=== PATIENT | male | born 1945 | race Caucasian/White ===

== ENCOUNTER 2022-11-26 00:17 | Observation (INO) | payer OTHER ==
--- NOTE | 2022-11-26 00:33 | ED ---
Chest Pain HPI - General Stated Complaint: Chest Pain Time Seen by Provider: 11/26/22 00:29 Source: RN notes reviewed, old records reviewed Mode of arrival: EMS Limitations: no limitations - History of Present Illness Initial Comments: This is a 77 male to the ED with a complaint of chest pain and history of CT, ACS. 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 Patient states chest pain is persistent here in the ER but intermittent. He does have bouts of chest pain but no shortness of breath no diaphoresis no other complaints. MD Complaint: chest pain -: unknown Onset: during rest, during exertion, awoke with symptoms Pain Location: substernal, left chest Pain Radiation: back Severity: moderate Severity scale (1-10): 4 Quality: tightness, heaviness Consistency: intermittent Improves With: nothing Worsens With: nothing Anginal Symptoms: nausea, sense of impending doom Other Symptoms: palpitations Treatments Prior to Arrival: none - Related Data Home Medications Medication Instructions Recorded Confirmed Isosorbide Mononitrate ER [Imdur] 15 mg PO DAILY 11/26/22 11/26/22 amLODIPine [Norvasc] 10 mg PO DAILY 11/26/22 11/26/22 lisinopriL [Zestril] 40 mg PO DAILY 11/26/22 11/26/22 Previous Rx's Medication Instructions Recorded Aspirin 81 mg PO HS #30 tab 11/27/22 Atorvastatin [Lipitor] 80 mg PO DAILY #30 tab 11/27/22 Metoprolol Tartrate [Lopressor] 12.5 mg PO DAILY #30 tab 11/27/22 Allergies Allergy/AdvReac Type Severity Reaction Status Date / Time No Known Allergies Allergy Verified 11/26/22 11:14 Review of Systems ROS Statement: Those systems with pertinent positive or pertinent negative responses have been documented in the HPI. ROS Other: All systems not noted in ROS Statement are negative. EKG Findings - EKG Comments: EKG Findings:: EKG is sinus bradycardia 56 CA 192 QRS 5 QTC 342 - EKG Results: EKG: interpreted by JOSE Past Medical History Past Medical History: Hyperlipidemia, Hypertension, Myocardial Infarction (CT) Last Myocardial Infarction Date:: 2012 History of Any Multi-Drug Resistant Organisms: None Reported Past Surgical History: Heart Catheterization With Stent Additional Past Surgical History / Comment(s): 1 stent in 2013, right eye cataract removal Past Anesthesia/Blood Transfusion Reactions: No Reported Reaction Date of Last Stent Placement:: 2012 Past Psychological History: No Psychological Hx Reported Past Alcohol Use History: None Reported Past Drug Use History: None Reported - Past Family History Mother History Unknown: Yes Additional Family Medical History / Comment(s): pacer General Exam General appearance: alert, in no apparent distress, anxious Head exam: Present: atraumatic, normocephalic, normal inspection Eye exam: Present: normal appearance, PERRL, EOMI. Absent: scleral icterus, conjunctival injection, periorbital swelling ENT exam: Present: normal exam, mucous membranes moist Neck exam: Present: normal inspection. Absent: tenderness, meningismus, lymphadenopathy Respiratory exam: Present: normal lung sounds bilaterally. Absent: respiratory distress, wheezes, rales, rhonchi, stridor Cardiovascular Exam: Present: normal rhythm, bradycardia, normal heart sounds. Absent: systolic murmur, diastolic murmur, rubs, gallop, clicks GI/Abdominal exam: Present: soft, normal bowel sounds. Absent: distended, tenderness, guarding, rebound, rigid Extremities exam: Present: normal inspection, full ROM, normal capillary refill. Absent: tenderness, pedal edema, joint swelling, calf tenderness Back exam: Present: normal inspection Neurological exam: Present: alert, oriented X3, CN II-XII intact Psychiatric exam: Present: normal affect, normal mood Skin exam: Present: warm, dry, intact, normal color. Absent: rash Course Vital Signs 11/26/22 11/26/22 11/26/22 01:36 01:42 01:52 Temperature 98.0 F Pulse Rate 53 L 53 L Respiratory 18 18 18 Rate Blood Pressure 140/78 140/76 O2 Sat by Pulse 94 L 95 Oximetry - Reevaluation(s) Reevaluation #1: 11/26/22 01:16 medical record is reviewed Reevaluation #2: 11/26/22 01:16 patient CP is intermittent, improving Reevaluation #3: 11/26/22 01:16 patient infomred of results and questions answered Reevaluation #4: 11/26/22 00:33 Was pt. sent in by a medical professional or institution (, PA, LIE DETECTOR OPERATOR, urgent care, hospital, or halfway...) When possible be specific @ -Yes patient was transferred from outside hospital, outside emergency department Did you speak to anyone other than the patient for history (EMS, parent, family, police, friend...)? What history was obtained from this source @ -no Did you review nursing and triage notes (agree or disagree)? Why? @ -agree Are old charts reviewed (outside hosp., previous admission, EMS record, old EKG, old radiological studies, urgent care reports/EKG's, halfway records)? Report findings @ -yes all charts from prior facility reviewed Differential Diagnosis (chest pain, altered mental status, abdominal pain women, abdominal pain men, vaginal bleeding, weakness, fever, dyspnea, syncope, headache, dizziness, GI bleed, back pain, seizure, CVA, palpatations, mental health, musculoskeletal)? @ -prior EKG interpreted by me (3pts min.). @ -yes X-rays interpreted by me (1pt min.). @ -no CT interpreted by me (1pt min.). @ -no U/S interpreted by me (1pt. min.). @ -no What testing was considered but not performed or refused? (CT, X-rays, U/S, labs)? Why? @ -none What meds were considered but not given or refused? Why? @ -none Did you discuss the management of the patient with other professionals (professionals i.e. , PA, LIE DETECTOR OPERATOR, lab, RT, psych nurse, social services counselor, service sprinkler helper, teacher, agricultural loan officer, continuous pillowcase cutter)? Give summary @ -no Was smoking cessation discussed for >3mins.? @ -no Was critical care preformed (if so, how long)? @ -no Were there social determinants of health that impacted care today? How? (Homelessness, low income, unemployed, alcoholism, drug addiction, transportation, low edu. Level, literacy, decrease access to med. care, nursing home, rehab)? @ -none Was there de-escalation of care discussed even if they declined (Discuss DNR or withdrawal of care, Hospice)? DNR status @ -no What co-morbidities impacted this encounter? (DM, HTN, Smoking, COPD, CAD, Cancer, CVA, ARF, Chemo, Hep., AIDS, mental health diagnosis, sleep apnea, morbid obesity)? @ -none Was patient admitted / discharged? Hospital course, mention meds given and route, prescriptions, significant lab abnormalities, going to OR and other pertinent info. @ - 77 male to the emergency department for evaluation accepted in transfer for CAD and ACS. Patient will be admitted for cardiology evaluation and management Admitted Undiagnosed new problem with uncertain prognosis? @ -no Drug Therapy requiring intensive monitoring for toxicity (Heparin, Nitro, Insulin, Cardizem)? @ -no Were any procedures done? @ -no Diagnosis/symptom? @ -Chest pain rule out ACS Acute, or Chronic, or Acute on Chronic? @ -Acute Uncomplicated (without systemic symptoms) or Complicated (systemic symptoms)? @ -Complicated Side effects of treatment? @ -no Exacerbation, Progression, or Severe Exacerbation? @ -exacerbation Poses a threat to life or bodily function? How? (Chest pain, USA, CT, pneumonia, PE, COPD, DKA, ARF, appy, cholecystitis, CVA, Diverticulitis, Homicidal, Suicidal, threat to staff... and all critical care pts) @ -yes and ACS is CAD Reevaluation #5: 11/26/22 00:33 Differential Chest Pain: Stable Angina, Unstable Angina, STEMI, NSTEMI Aortic Dissection, Pneumothorax, Musculoskeletal, Esophageal Spasm GERD, Cholecystitis, Pancreatitis, Zoster, this is not meant to be an all-inclusive list. - Consultations Consultation #1: spoke w EM who agree to admit the patient Chest Pain MDM - [facility] 77 male to the emergency department for evaluation accepted in transfer for CAD and ACS. Patient will be admitted for cardiology evaluation and management Disposition Clinical Impression: Unstable angina pectoris, Chest pain Disposition: ADMITTED IP TO THIS HOSP Condition: Stable Is patient prescribed a controlled substance at d/c from ED?: No Time of Disposition: 01:15
[2022-11-26] MEDS ORDERED: ONDANSETRON 4 MG/2 ML VIAL IVP PRN (01:14)
[2022-11-26] MEDS ORDERED: NALOXONE 0.4 MG/ML 1 ML VIAL IV PRN (01:14)
[2022-11-26] MEDS ORDERED: MORPHINE SULFATE 4 MG/ML SYRINGE IV PRN (01:14)
[2022-11-26] MEDS: SODIUM CHLORIDE 0.9% 1,000 ML IV SCH ×2 (01:45→21:50)
[2022-11-26] MEDS: ISOSORBIDE MONONITRATE ER 15 MG TAB PO SCH (10:08)
[2022-11-26] MEDS: ATORVASTATIN 80 MG TAB PO SCH (10:08)
[2022-11-26] MEDS: METOPROLOL TARTRATE 12.5 MG TAB PO SCH (10:08)
--- NOTE | 2022-11-26 10:46 | P.CRDCN ---
History of Present Illness Consult date: 11/26/22 Requesting physician: Dina Flaherty Reason for Consult (text): chest pain Chief complaint: chest pain History of present illness: This is a pleasant 77-year-old gentleman who follows in the office with Dr. Abdi. He has a known history of CAD with prior stent placement of the circumflex artery in 2011 with subsequent cardiac catheterization in 2016 showing a patent stent with a with severe disease involving a small to medium caliber first diagonal branch. He also has a history of hypertension, hyperlipidemia. Presented to [facility] with complaints of chest discomfort. He began having brief intermittent left-sided chest discomfort lasting seconds at a time, recurrent with no associated symptoms. Troponin was negative there. CTA of the chest was negative for PE. Creatinine 1.4. EKG showed no evidence of acute ischemia. He was transferred here for further evaluation and treatment. According to the patient he underwent stress testing earlier this year that was unremarkable. Cardiac enzymes have been negative. Upon examination he is resting comfortably in bed. He denies any complaints of shortness of breath, orthopnea or PND. Denies complaints of lower extremity edema. He's had no palpitations, dizziness or lightheadedness. Continues to have intermittent very brief chest discomfort that is tenter compared to presentation. Past Medical History Past Medical History: Hyperlipidemia, Hypertension, Myocardial Infarction ([place]) Last Myocardial Infarction Date:: 2012 History of Any Multi-Drug Resistant Organisms: None Reported Past Surgical History: Heart Catheterization With Stent Additional Past Surgical History / Comment(s): 1 stent in 2012, right eye cataract removal Past Anesthesia/Blood Transfusion Reactions: No Reported Reaction Date of Last Stent Placement:: 2012 Past Psychological History: No Psychological Hx Reported Smoking Status: Unknown if ever smoked Past Alcohol Use History: None Reported Past Drug Use History: None Reported - Past Family History Mother History Unknown: Yes Additional Family Medical History / Comment(s): pacer Medications and Allergies Home Medications Medication Instructions Recorded Confirmed Type Isosorbide Mononitrate ER [Imdur] 15 mg PO DAILY 11/26/22 11/26/22 History Metoprolol Tartrate [Lopressor] 25 mg PO BID 11/26/22 11/26/22 History amLODIPine [Norvasc] 10 mg PO DAILY 11/26/22 11/26/22 History lisinopriL [Zestril] 40 mg PO DAILY 11/26/22 11/26/22 History Allergies Allergy/AdvReac Type Severity Reaction Status Date / Time No Known Allergies Allergy Verified 11/26/22 11:14 Physical Exam Vitals: Vital Signs Temp Pulse Pulse Resp BP BP Pulse Ox 11/26/22 08:00 56 L 16 11/26/22 07:00 97.4 F L 56 L 16 164/75 95 11/26/22 03:04 97.4 F L 54 L 16 171/75 98 11/26/22 01:52 18 11/26/22 01:42 53 L 18 140/76 95 11/26/22 01:36 98.0 F 53 L 18 140/78 94 L Intake and Output 11/25/22 11/26/22 11/26/22 22:59 06:59 14:59 Other: # Voids 1 Weight 117.934 kg PHYSICAL EXAMINATION: This is a 77-year-old male in no apparent distress at the time of my examination. HEENT: Head is atraumatic, normocephalic. Pupils are equal, round. Sclerae anicteric. Conjunctivae are clear. Mucous membranes of the mouth are moist. Neck is supple. There is no elevated jugular venous pressure. No carotid bruit is heard. CHEST EXAMINATION: Clear to auscultation bilaterally. No wheezes rales or rhon chi. Respirations even and nonlabored. HEART EXAMINATION: Heart regular, positive S1 and S2. No S3. No S4. Soft systolic murmur. ABDOMEN: Soft, nontender. Bowel sounds are heard. No organomegaly noted. EXTREMITIES: 2+ peripheral pulses with no evidence of peripheral edema and no calf tenderness noted. NEUROLOGIC EXAMINATION: Patient is awake, alert and oriented x3. Results Cardiac Enzymes 11/26/22 11/26/22 Range/Units 04:07 06:28 Troponin I <0.012 <0.012 (0.000-0.034) ng/mL Current Medications Generic Name Dose Route Start Last Admin Trade Name Freq PRN Reason Stop Dose Admin Aspirin 81 mg 11/26/22 21:00 Aspirin 81 Mg PO HS BARRETT Atorvastatin Calcium 80 mg 11/26/22 09:00 11/26/22 10:08 Atorvastatin 80 Mg Tab PO 80 mg DAILY BARRETT Administration Sodium Chloride 1,000 mls @ 20 mls/hr 11/26/22 01:15 11/26/22 01:45 Saline 0.9% IV 20 mls/hr .Q24H BARRETT Administration Isosorbide Mononitrate 15 mg 11/26/22 09:00 11/26/22 10:08 Isosorbide Mononitrate Er 15 Mg Tab PO 15 mg DAILY BARRETT Administration Lisinopril 10 mg 11/26/22 21:00 Lisinopril 10 Mg Tab PO HS BARRETT Metoprolol Tartrate 12.5 mg 11/26/22 09:00 11/26/22 10:08 Metoprolol Tartrate 12.5 Mg Tab PO 12.5 mg DAILY BARRETT Administration Morphine Sulfate 4 mg 11/26/22 01:14 Morphine Sulfate 4 Mg/Ml Syringe IV Q4HR PRN Severe Pain (Scale 7 to 10) Naloxone HCl 0.2 mg 11/26/22 01:14 Naloxone 0.4 Mg/Ml 1 Ml Vial IV Q2M PRN Opioid Reversal Ondansetron HCl 4 mg 11/26/22 01:14 Ondansetron 4 Mg/2 Ml Vial IVP Q8HR PRN Nausea And Vomiting Intake and Output 11/25/22 11/26/22 11/26/22 22:59 06:59 14:59 Other: # Voids 1 Weight 117.934 kg EKG Interpretations (text) Sinus bradycardia with nonspecific T-wave abnormalities, unchanged from 2016 Assessment and Plan Assessment: #1 symptoms of chest discomfort, acute coronary event has been ruled out, troponins negative 3, EKG shows no evidence of acute ischemia, recent stress test according to the patient was unremarkable #2 history of CAD with prior stenting of the proximal circumflex #3 hypertension #4 hyperlipidemia Plan: From Cardiology's perspective acute coronary event has been ruled out. The patient is stable for discharge home. He will follow-up with Dr. Abdi as an outpatient. STAFFING PROGRAM MANAGER note has been reviewed, I agree with a documented findings and plan of care. Patient was seen and examined.
[2022-11-26 13:00] LABS: Basophils % (A) 0 %; Eosinophils # (A) 0.3 k/uL (0-0.7); Eosinophils % (A) 5 %; HCT 45.6 % (39.0-53.0); HGB 15.2 gm/dL (13.0-17.5); Lymphocytes # (A) 1.2 k/uL (1.0-4.8); Lymphocytes % (A) 19 %; MCH 29.7 pg (25.0-35.0); MCHC 33.4 g/dL (31.0-37.0); MCV 88.9 fL (80.0-100.0); Mean Platelet Volume 7.8; Monocytes # (A) 0.4 k/uL (0-1.0); Monocytes % (A) 7 %; Neutrophils % (A) 66 %; Platelet Count 185 k/uL (150-450); RBC 5.13 m/uL (4.30-5.90); RDW 13.7 % (11.5-15.5); WBC 6.1 k/uL (3.8-10.6)
[2022-11-26 13:21] LABS: African American GFR (CKD) >90 (>60 ml/min/1.73 sqM); Anion Gap 6 mmol/L; Blood Urea Nitrogen 21 mg/dL (9-20); Calcium 9.1 mg/dL (8.4-10.2); Carbon Dioxide 23 mmol/L (22-30); Chloride 109 mmol/L (98-107); Glucose 102 mg/dL (74-99); Non-African American GFR(CKD) 81 (>60 ml/min/1.73 sqM); Potassium 4.3 mmol/L (3.5-5.1); Sodium 138 mmol/L (137-145)
--- NOTE | 2022-11-26 18:52 | P.HPIM ---
History of Present Illness H&P Date: 11/26/22 Chief Complaint: Chest pain 77 male to the ED with a complaint of chest pain and history of [place], ACS. 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 Patient states chest pain is persistent here in the ER but intermittent. He does have bouts of chest pain but no shortness of breath no diaphoresis no other complaints. Presented to [facility] with complaints of chest discomfort. He began having brief intermittent left-sided chest discomfort lasting seconds at a time, recurrent with no associated symptoms. Troponin was negative there. CTA of the chest was negative for PE. Creatinine 1.4. EKG showed no evidence of acute ischemia. He was transferred here for further evaluation and treatment. According to the patient he underwent stress testing earlier this year that was unremarkable. Cardiac enzymes have been negative. Review of Systems REVIEW OF SYSTEMS: CONSTITUTIONAL: No fever, no malaise, no fatigue. HEENT: No recent visual problems or hearing problems. Denied any sore throat. CARDIOVASCULAR: No chest pain, orthopnea, PND, no palpitations, no syncope. PULMONARY: No shortness of breath, no cough, no hemoptysis. GASTROINTESTINAL: No diarrhea, no nausea, no vomiting, no abdominal pain. NEUROLOGICAL: No headaches, no weakness, no numbness. HEMATOLOGICAL: Denies any bleeding or petechiae. GENITOURINARY: Denies any burning micturition, frequency, or urgency. MUSCULOSKELETAL/RHEUMATOLOGICAL: Denies any joint pain, swelling, or any muscle pain. ENDOCRINE: Denies any polyuria or polydipsia. The rest of the 14-point review of systems is negative. Past Medical History Past Medical History: Hyperlipidemia, Hypertension, Myocardial Infarction ([place]) Last Myocardial Infarction Date:: 2012 History of Any Multi-Drug Resistant Organisms: None Reported Past Surgical History: Heart Catheterization With Stent Additional Past Surgical History / Comment(s): 1 stent in 2012, right eye cataract removal Past Anesthesia/Blood Transfusion Reactions: No Reported Reaction Date of Last Stent Placement:: 2012 Past Psychological History: No Psychological Hx Reported Smoking Status: Unknown if ever smoked Past Alcohol Use History: None Reported Past Drug Use History: None Reported - Past Family History Mother History Unknown: Yes Additional Family Medical History / Comment(s): pacer Medications and Allergies Home Medications Medication Instructions Recorded Confirmed Type Isosorbide Mononitrate ER [Imdur] 15 mg PO DAILY 11/26/22 11/26/22 History Metoprolol Tartrate [Lopressor] 25 mg PO BID 11/26/22 11/26/22 History amLODIPine [Norvasc] 10 mg PO DAILY 11/26/22 11/26/22 History lisinopriL [Zestril] 40 mg PO DAILY 11/26/22 11/26/22 History Allergies Allergy/AdvReac Type Severity Reaction Status Date / Time No Known Allergies Allergy Verified 11/26/22 11:14 Physical Exam Vitals: Vital Signs Temp Pulse Pulse Resp BP BP Pulse Ox 11/26/22 07:00 97.4 F L 56 L 16 164/75 95 11/26/22 03:04 97.4 F L 54 L 16 171/75 98 11/26/22 01:52 18 11/26/22 01:42 53 L 18 140/76 95 11/26/22 01:36 98.0 F 53 L 18 140/78 94 L Intake and Output 11/25/22 11/26/22 11/26/22 22:59 06:59 14:59 Other: # Voids 1 Weight 117.934 kg General appearance: alert, in no apparent distress Head exam: Present: atraumatic, normocephalic, normal inspection Eye exam: Present: normal appearance, PERRL, EOMI. Absent: scleral icterus, conjunctival injection, periorbital swelling ENT exam: Present: normal exam, mucous membranes moist Neck exam: Present: normal inspection. Absent: tenderness, meningismus, lymphadenopathy Respiratory exam: Present: normal lung sounds bilaterally. Absent: respiratory distress, wheezes, rales, rhonchi, stridor Cardiovascular Exam: Present: regular rate, normal rhythm, normal heart sounds. Absent: systolic murmur, diastolic murmur, rubs, gallop, clicks GI/Abdominal exam: Present: soft, normal bowel sounds. Absent: distended, tenderness, guarding, rebound, rigid Extremities exam: Present: normal inspection, full ROM, normal capillary refill. Absent: tenderness, pedal edema, joint swelling, calf tenderness Back exam: Present: normal inspection Neurological exam: Present: alert, oriented X3, CN II-XII intact Psychiatric exam: Present: normal affect, normal mood Skin exam: Present: warm, dry, intact, normal color. Absent: rash Results CBC & Chem 7: 11/26/22 12:43 11/26/22 12:43 Assessment and Plan Assessment: 1. Chest pain; - Patient remains on aspirin, statins and beta blockers - We will monitor EKG and trend troponin - Consult cardiology for further recommendations 2. Mild renal injury; slowly IV fluid hydration with normal saline; monitor strict KENZIE's, daily weights, renal function and electrolytes; avoid nephrotoxins and hypotension 3. Hypertension; patient takes lisinopril 10 mg by mouth daily at bedtime, metoprolol 12.5 mg daily, Imdur 15 mg daily, Norvasc 10 mg daily 4. Hyperlipidemia; Lipitor 80 mg by mouth daily at bedtime 5. History of coronary artery disease; patient has history of coronary artery disease with last catheterization in 2011 with stent placement to circumflex artery and subsequent catheterization in 2015 which showed patent stents with severe disease involving first diagonal branch DVT prophylaxis; SCDs CODE STATUS; full code
[2022-11-26] MEDS ORDERED: ASPIRIN 81 MG PO SCH (21:00)
[2022-11-26] MEDS ORDERED: lisinopriL 10 MG TAB PO SCH (21:00)
[2022-11-27 08:20] VITALS: BP 138/79; PULSE 58; RESP 17; TEMP 98.2
[2022-11-27] MEDS: ATORVASTATIN 80 MG TAB PO SCH (08:39)
[2022-11-27] MEDS: ISOSORBIDE MONONITRATE ER 15 MG TAB PO SCH (08:39)
[2022-11-27] MEDS: METOPROLOL TARTRATE 12.5 MG TAB PO SCH (08:40)
[2022-11-27 08:58] LABS: Basophils # (A) 0.06 X 10*3/uL (0.00-0.10); Basophils % (A) 0.9 %; Eosinophils # (A) 0.25 X 10*3/uL (0.04-0.35); Eosinophils % (A) 3.8 %; HCT 45.2 % (39.6-50.0); HGB 14.8 d/dL (13.0-17.0); Lymphocytes # (A) 1.87 X 10*3/uL (0.90-5.00); Lymphocytes % (A) 28.5 %; MCH 29.4 pg (27.0-32.0); MCHC 32.7 d/dL (32.0-37.0); MCV 89.7 FL (80.0-97.0); Mean Platelet Volume 10.4 FL (9.5-12.2); Monocytes % (A) 10.7 %; NRBC Per 100 WBC 0 X 10*3/uL (0.00-0.01); Neutrophils # (A) 3.66 X 10*3/uL (1.80-7.70); Neutrophils % (A) 55.8 %; Platelet Count 184 X 10*3/uL (140-440); RBC 5.04 X 10*6/uL (4.40-5.60); RDW 13.8 % (11.5-14.5); WBC 6.56 X 10*3/uL (4.50-10.00)
[2022-11-27] MEDS ORDERED: amLODIPine 10 MG TAB PO SCH (09:00)
[2022-11-27] MEDS ORDERED: lisinopriL 20 MG TAB PO SCH (09:00)
[2022-11-27 09:07] LABS: ALT 22 U/L (10-49); AST 19 U/L (14-35); Albumin 4.1 d/dL (3.8-4.9); Albumin/Globulin Ratio 2.41 Ratio (1.60-3.17); Alkaline Phosphatase 75 U/L (41-126); BUN/Creat Ratio 16.82 Ratio (12.00-20.00); Blood Urea Nitrogen 18.5 mg/dL (9.0-27.0); Carbon Dioxide 23.1 mmol/L (21.6-31.8); Chloride 108 mmol/L (96-109); Globulin 1.7 d/dL (1.6-3.3); Glucose 95 mg/dL (70-110); Phosphorus 3.1 mg/dL (2.4-5.1); Potassium 4.4 mmol/L (3.5-5.5); Sodium 142 mmol/L (135-145); Total Bilirubin 0.6 mg/dL (0.3-1.2); Total Protein 5.8 d/dL (6.2-8.2)
[2022-11-27 09:37] LABS: LDL Cholesterol,Calculated 74.2 mg/dL (0.0-131.0)
--- NOTE | 2022-11-27 11:31 | P.PN ---
Subjective Progress Note Date: 11/27/22 This is a pleasant 77-year-old gentleman who follows in the office with Dr. Abdi. He has a known history of CAD with prior stent placement of the circumflex artery in 2011 with subsequent cardiac catheterization in 2016 showing a patent stent with a with severe disease involving a small to medium caliber first diagonal branch. He also has a history of hypertension, hyperlipidemia. Presented to [facility] with complaints of chest discomfort. He began having brief intermittent left-sided chest discomfort lasting seconds at a time, recurrent with no associated symptoms. Troponin was negative there. CTA of the chest was negative for PE. Creatinine 1.4. EKG showed no evidence of acute ischemia. He was transferred here for further evaluation and treatment. According to the patient he underwent stress testing earlier this year that was unremarkable. Cardiac enzymes have been negative. Upon examination he is resting comfortably in bed. He denies any complaints of shortness of breath, orthopnea or PND. Denies complaints of lower extremity edema. He's had no palpitations, dizziness or lightheadedness. Continues to have intermittent very brief chest discomfort that is shot bagger compared to presentation. 11/27/2022 Patient was seen and examined resting in bed. He's had no further complaints of chest discomfort. Vital signs are stable. Labs are stable. He is hoping to be discharged home today. Objective - Vital Signs Vital signs: Vital Signs Temp 98.2 F 11/27/22 07:00 Pulse 58 L 11/27/22 08:00 Resp 17 11/27/22 08:00 BP 138/79 11/27/22 07:00 Pulse Ox 97 11/27/22 07:00 FiO2 Intake & Output 11/26/22 11/27/22 11/27/22 18:59 06:59 18:59 Intake Total 118 Balance 118 Intake: Oral 118 Other: # Voids 3 1 - Exam PHYSICAL EXAMINATION: This is a 77-year-old male in no apparent distress at the time of my examination. HEENT: Head is atraumatic, normocephalic. Pupils are equal, round. Sclerae anicteric. Conjunctivae are clear. Mucous membranes of the mouth are moist. Neck is supple. There is no elevated jugular venous pressure. No carotid bruit is heard. CHEST EXAMINATION: Clear to auscultation bilaterally. No wheezes rales or rhonchi. Respirations even and nonlabored. HEART EXAMINATION: Heart regular, positive S1 and S2. No S3. No S4. Soft systolic murmur. ABDOMEN: Soft, nontender. Bowel sounds are heard. No organomegaly noted. EXTREMITIES: 2+ peripheral pulses with no evidence of peripheral edema and no calf tenderness noted. NEUROLOGIC EXAMINATION: Patient is awake, alert and oriented x3. - Labs CBC & Chem 7: 11/27/22 05:39 11/27/22 05:39 Labs: Abnormal Lab Results - Last 24 Hours (Table) 11/26/22 11/27/22 Range/Units 12:43 05:39 Chloride 109 H (98-107) mmol/L BUN 21 H (9-20) mg/dL Glucose 102 H (74-99) mg/dL Total Protein 5.8 L (6.2-8.2) d/dL Assessment and Plan Assessment: #1 symptoms of chest discomfort, acute coronary event has been ruled out, troponins negative 3, EKG shows no evidence of acute ischemia, recent stress test according to the patient was unremarkable #2 history of CAD with prior stenting of the proximal circumflex #3 hypertension #4 hyperlipidemia Plan: From Cardiology's perspective acute coronary event has been ruled out. The patient is stable for discharge home. He will follow-up with Dr. Abdi as an outpatient. DESK ASSISTANT note has been reviewed, I agree with a documented findings and plan of care. Patient was seen and examined.
[2022-11-27 13:01] LABS: INR 0.93 sec (0.93-1.11); Prothrombin Time 10.5 sec (9.9-11.9)
--- NOTE | 2022-11-30 13:35 | P.DS ---
Providers Date of admission: 11/26/22 01:14 Expected date of discharge: 11/27/22 Attending physician: Dina Flaherty Consults: 11/26/22 01:14 Consult Physician Routine Consulting Provider: Kris Abdi Consult Reason/Comments: known Do you want consulting provider notified?: Yes Primary care physician: Phuc Tilley MD Hospital Course: Final diagnosis Chest pain, ruled out ACS Mild acute kidney injury, improving with IV fluids Hypertension history Hyperlipidemia history History of coronary artery disease with previous stents Obesity with a BMI of 39.5 GI prophylaxis DVT prophylaxis Full code Discharge disposition Patient is being discharged in a stable condition with guarded prognosis to home. Patient will follow-up with Dr. Tilley in the outpatient setting upon discharge. Patient is to follow-up with cardiology outpatient as scheduled. Total time taken is greater than 35 minutes. Hospital course This is a 77-year-old male who was recently admitted with chest pain for further cardiology evaluation as patient was at [facility] and sent here with chest discomfort. Troponins were negative and CTA of the chest was negative for PE. Patient was evaluated by cardiology recommending outpatient follow-up and has been cleared for discharge today. Patient would like to go home. Please refer to cardiology no for further HPI. Currently no reports of chest pain, shortness of breath, or palpitations. Patient is afebrile. No reports of nausea or vomiting and patient is tolerating diet. Patient will be discharged home today. Guarded prognosis Physical exam: Gen: This is a 77 year old male who is awake, alert and oriented 3, well- developed, well-nourished, obese HEENT: Head is atraumatic, normocephalic. Pupils equal, round. Sclerae is anicteric. NECK: Supple. No JVD. No lymphadenopathy. No thyromegaly. LUNGS: Clear to auscultation. No wheezes or rhonchi. No intercostal retractions. HEART: Regular rate and rhythm. No murmur. ABDOMEN: Soft. Obese. Bowel sounds are present. No masses. No tenderness. EXTREMITIES: No pedal edema. No calf tenderness. NEUROLOGICAL: Patient is awake, alert and oriented x3. Cranial nerves 2 through 12 are grossly intact. Please refer to medication reconciliation sheet for a list of medications. The impression and plan of care has been dictated by Maricarmen Fay, Nurse Prac titioner as directed. Dr. Ruby MD I have performed a history and examination and MDM of this patient, discussed the same with the dictator, and agree with the dictator's assessment and plan as written ,documented as a scribe. Based on total visit time, I have performed more than 50% of the visit. Patient Condition at Discharge: Stable Plan - Discharge Summary New Discharge Prescriptions: New Aspirin 81 mg PO HS #30 tab Atorvastatin [Lipitor] 80 mg PO DAILY #30 tab Metoprolol Tartrate [Lopressor] 12.5 mg PO DAILY #30 tab Continue lisinopriL [Zestril] 40 mg PO DAILY Isosorbide Mononitrate ER [Imdur] 15 mg PO DAILY amLODIPine [Norvasc] 10 mg PO DAILY Discontinued Metoprolol Tartrate [Lopressor] 25 mg PO BID Discharge Medication List Isosorbide Mononitrate ER [Imdur] 15 mg PO DAILY 11/26/22 [History] amLODIPine [Norvasc] 10 mg PO DAILY 11/26/22 [History] lisinopriL [Zestril] 40 mg PO DAILY 11/26/22 [History] Aspirin 81 mg PO HS #30 tab 11/27/22 [Rx] Atorvastatin [Lipitor] 80 mg PO DAILY #30 tab 11/27/22 [Rx] Metoprolol Tartrate [Lopressor] 12.5 mg PO DAILY #30 tab 11/27/22 [Rx] Follow up Appointment(s)/Referral(s): Kris Abdi MD [STAFF PHYSICIAN] - 1 Week (please call tomorrow for an appointment ) Nonstaezio,Physician [REFERRING] - 1-2 days (please follow up with primary dr in next few days ) Patient Instructions/Handouts: Chest Pain (DC) Activity/Diet/Wound Care/Special Instructions: Activity limited until follow-up Follow-up with primary care provider on discharge Follow-up with cardiology in 1-2 weeks Continue taking medications as prescribed Discharge Disposition: HOME SELF-CARE
== END 2022-11-27 13:27 | disposition home or self-care (01) ==
LOC: EC 00:17 → 6NMEDSUR 01:14
PROVIDERS: ADMIT Hospitalist; ATTEND Hospitalist
DX: I25.110 Atherosclerotic heart disease of native coronary artery with unstable angina pectoris (principal); N17.9 Acute kidney failure, unspecified; I10 Essential (primary) hypertension; E78.5 Hyperlipidemia, unspecified; E66.9 Obesity, unspecified; Z68.39 Body mass index [BMI] 39.0-39.9, adult; Z79.899 Other long term (current) drug therapy; I25.2 Old myocardial infarction; Z95.5 Presence of coronary angioplasty implant and graft; Z98.41 Cataract extraction status, right eye
CPT/HCPCS: 96361; 96360; 99285; 93005; 80053; 80048; 80061; 83735; 84100; 84484; 85025 ×2; 85610; G0378 ×2